=== PATIENT | male | born 1970 | race Caucasian/White ===

== ENCOUNTER 2016-10-27 09:47 | Inpatient (IN) | payer SELFPAY ==
[~2016-10-27] VITALS: Ht 160 cm; Wt 131.1 kg
[2016-10-27] MEDS ORDERED: IBUP100T54 PO (09:51)
[2016-10-27] MEDS ORDERED: NAPR220C15 PO (09:51)
[2016-10-27] MEDS ORDERED: ACET-2247 PO (09:51)
[2016-10-27] MEDS ORDERED: BARIUM SULFATE 0.1% SUSPENSION 450 ML BOTTLE PO ONE (10:15)
[2016-10-27] MEDS ORDERED: ONDANSETRON HCL 4 MG/2 ML VIAL IVP ONE (10:15)
[2016-10-27 10:17] LABS: BASOPHILS % (AUTO) 0.1 % (0.0-2.0); EOSINOPHILS % (AUTO) 0.6 % (1.0-6.0); HEMATOCRIT 42.4 % (41-53); LYMPHOCYTES % (AUTO) 11.8 % (22.0-44.0); MEAN CORPUSCULAR HEMOGLOBIN 26.3 pg (26.0-34.0); MEAN CORPUSCULAR VOLUME 80 fL (80-100); NEUTROPHILS % (AUTO) 81.5 % (40.0-70.0); PLATELET COUNT (AUTO) 585 K/uL (150-450); RED BLOOD CELL COUNT(AUTO) 5.32 MIL/uL (4.50-5.90); RED CELL DISTRIBUTION WIDTH 13.8 % (11.5-14.5); WHITE BLOOD COUNT (AUTO) 17.2 K/uL (4.5-11.0)
[2016-10-27 10:26] LABS: ANION GAP 8 mmol/L (8-16); CALCIUM, TOTAL 9.4 mg/dL (8.8-10.5); CARBON DIOXIDE 28 mmol/L (22-29); CHLORIDE 97 mmol/L (98-107); CREATININE 1.08 mg/dL (0.60-1.30); GLOMERULAR FILTR. RATE CALC > 60 mL/min (>60); POTASSIUM 4.3 mmol/L (3.5-5.1); SODIUM SERUM 133 mmol/L (136-145); UREA NITROGEN, BLOOD 12 mg/dL (7-18)
[2016-10-27 10:33] LABS: ALANINE AMINOTRANSFERASE 40 U/L (12-78); ALBUMIN 2.6 g/dL (3.4-5.0); ASPARTATE AMINOTRANSFERASE 29 U/L (15-37); BILIRUBIN,TOTAL 1.1 mg/dL (0.1-1.0); TOTAL PROTEIN, SERUM 8.9 g/dL (6.4-8.2)
[2016-10-27] MEDS ORDERED: SODIUM CHLORIDE 0.9% 100 ML ONE (11:43)
[2016-10-27] MEDS ORDERED: IOVERSOL 320 MG/ML 100 ML VIAL ONE (11:43)
[2016-10-27 11:50] LABS: APPEARANCE,URINE CLOUDY (CLEAR); GLUCOSE, URINE (UA) NEGATIVE (NEGATIVE); KETONES,URINE TRACE mg/dL (NEGATIVE); LEUKOCYTE ESTERASE ,URINE NEGATIVE (NEGATIVE); OCCULT BLOOD,URINE NEGATIVE (NEGATIVE); PH,URINE 5.5 (5.0-8.0); PROTEIN,URINE NEGATIVE (NEGATIVE)
[2016-10-27 12:05] LABS: RBC,URINE 0-2 /HPF (0-2); WBC,URINE None Seen /HPF (0-5)
[2016-10-27 12:06] LABS: SQUAMOUS EPITHELIAL CELL,UR Few /LPF (None Seen)
[2016-10-27] MEDS ORDERED: PIPERACILLIN/TAZO 3.375 GM/D5W 50 ML IV ONE (14:00)
[2016-10-27] MEDS ORDERED: MetroNIDAZOLE 750 MG/NACL 150 ML IV ONE (14:00)
[2016-10-27] MEDS ORDERED: ONDANSETRON HCL 4 MG/2 ML VIAL IVP PRN ×2 (14:45→20:45)
[2016-10-27] MEDS ORDERED: SODIUM CHLORIDE 0.9% 1,000 ML IV ONE (14:45)
[2016-10-27] MEDS ORDERED: MORPHINE SULFATE 4 MG/ML SYRINGE IVP PRN (14:45)
[2016-10-27 17:16] VITALS: BP 106/74
[2016-10-27 17:23] VITALS: BP 114/82
[2016-10-27 19:30] VITALS: BP 100/65
[2016-10-27] MEDS ORDERED: PIPERACILLIN/TAZO 3.375 GM/D5W 50 ML IV SCH (20:00)
[2016-10-27] MEDS ORDERED: BISACODYL 10 MG RECTAL RECTAL SUPPOSITORY PR PRN (20:45)
[2016-10-27] MEDS ORDERED: ACETAMINOPHEN 325 MG TABLET PO PRN (20:45)
[2016-10-27] MEDS ORDERED: ZOLPIDEM TARTRATE 5 MG TABLET PO PRN (20:45)
[2016-10-27] MEDS ORDERED: IPRATROPIUM BROMIDE 0.5 MG/2.5 ML NEB SOLUTION NEB PRN (20:45)
[2016-10-27] MEDS ORDERED: MORPHINE SULFATE 2 MG/ML SYRINGE IVP PRN (20:45)
[2016-10-27] MEDS ORDERED: ALBUTEROL SULFATE 2.5 MG/0.5 ML NEB SOLUTION NEB PRN (20:45)
[2016-10-27] MEDS ORDERED: MAGNESIUM HYDROXIDE SUSPENSION 30 ML UDCUP PO PRN (20:45)
[2016-10-27] MEDS ORDERED: HYDROCODONE/ACETAMINOPHEN 5-325 MG TABLET PO PRN (20:45)
[2016-10-27] MEDS: DOCUSATE SODIUM 100 MG CAPSULE PO SCH (21:33)
[2016-10-27] MEDS ORDERED: MetroNIDAZOLE 500 MG/NACL 100 ML IV SCH (22:00)
[2016-10-27] MEDS: PIPERACILLIN/TAZO 3.375 GM/D5W 50 ML IV SCH (22:26)
[2016-10-27] MEDS: MetroNIDAZOLE 500 MG/NACL 100 ML IV SCH (22:28)
[2016-10-27 23:12] VITALS: BP 98/71
[2016-10-28] MEDS: HEPARIN SODIUM,PORCINE 5,000 UNITS/ML VIAL SQ SCH ×3 (01:44→16:00)
[2016-10-28] MEDS: PIPERACILLIN/TAZO 3.375 GM/D5W 50 ML IV SCH ×4 (03:11→20:39)
[2016-10-28 04:00] VITALS: BP 96/68
[2016-10-28] MEDS ORDERED: SODIUM CHLORIDE 0.9% 1,000 ML IV ONE (05:11)
[2016-10-28 05:37] LABS: BASOPHILS % (AUTO) 0.4 % (0.0-2.0); EOSINOPHILS % (AUTO) 1.2 % (1.0-6.0); HEMATOCRIT 38.4 % (41-53); HEMOGLOBIN 12.5 g/dL (13.5-17.5); LYMPHOCYTES # (AUTO) 2.2 K/uL (1.0-4.8); LYMPHOCYTES % (AUTO) 13.6 % (22.0-44.0); MEAN CORPUSCULAR HEMOGLOBIN 26.1 pg (26.0-34.0); MEAN CORPUSCULAR HGB CONC 32.5 G/dL (31.0-37.0); MEAN CORPUSCULAR VOLUME 80 fL (80-100); MONOCYTES # (AUTO) 0.9 K/uL (0.1-1.0); MONOCYTES % (AUTO) 5.4 % (2.0-9.0); NEUTROPHILS # (AUTO) 12.7 K/uL (1.8-7.7); NEUTROPHILS % (AUTO) 79.4 % (40.0-70.0); PLATELET COUNT (AUTO) 526 K/uL (150-450); RED BLOOD CELL COUNT(AUTO) 4.77 MIL/uL (4.50-5.90); RED CELL DISTRIBUTION WIDTH 14.2 % (11.5-14.5)
[2016-10-28 05:51] LABS: INR 1.1 (0.9-1.1)
[2016-10-28 06:19] LABS: ALANINE AMINOTRANSFERASE 32 U/L (12-78); ALBUMIN 2.3 g/dL (3.4-5.0); ANION GAP 12 mmol/L (8-16); ASPARTATE AMINOTRANSFERASE 22 U/L (15-37); BILIRUBIN,TOTAL 0.9 mg/dL (0.1-1.0); CALCIUM, TOTAL 8.7 mg/dL (8.8-10.5); CARBON DIOXIDE 24 mmol/L (22-29); CHLORIDE 99 mmol/L (98-107); CREATININE 0.94 mg/dL (0.60-1.30); GLOMERULAR FILTR. RATE CALC > 60 mL/min (>60); POTASSIUM 3.8 mmol/L (3.5-5.1); SODIUM SERUM 135 mmol/L (136-145); TOTAL PROTEIN, SERUM 7.6 g/dL (6.4-8.2); UREA NITROGEN, BLOOD 12 mg/dL (7-18)
[2016-10-28] MEDS: MetroNIDAZOLE 500 MG/NACL 100 ML IV SCH ×3 (07:19→21:54)
[2016-10-28 07:33] VITALS: BP 107/71
[2016-10-28] MEDS: DOCUSATE SODIUM 100 MG CAPSULE PO SCH ×2 (09:00→20:39)
[2016-10-28] MEDS: PANTOPRAZOLE SODIUM 40 MG/VIAL IVP SCH (09:18)
[2016-10-28 11:21] VITALS: BP 98/65
[2016-10-28] MEDS ORDERED: MIDAZOLAM HCL 2 MG/2 ML VIAL ONE (13:58)
[2016-10-28] MEDS ORDERED: FentaNYL CITRATE-PF 100 MCG/2 ML VIAL ONE (13:59)
[2016-10-28] MEDS ORDERED: HEPARIN SODIUM 1000 UNITS/NS 500 ML ONE (14:48)
[2016-10-28] MEDS ORDERED: LIDOCAINE HCL/PF 1% 30 ML VIAL ONE (14:49)
[2016-10-28] MEDS ORDERED: MIDAZOLAM HCL 2 MG/2 ML VIAL IVP ONE (15:12)
[2016-10-28] MEDS ORDERED: FentaNYL CITRATE-PF 100 MCG/2 ML VIAL IVP ONE (15:13)
[2016-10-28 17:14] VITALS: BP 111/71
[2016-10-28 19:49] VITALS: BP 104/73
[2016-10-28 23:45] VITALS: BP 110/68
[2016-10-29] MEDS: PIPERACILLIN/TAZO 3.375 GM/D5W 50 ML IV SCH ×4 (04:10→20:43)
[2016-10-29 04:55] VITALS: BP 91/68
[2016-10-29] MEDS: MetroNIDAZOLE 500 MG/NACL 100 ML IV SCH ×3 (05:55→22:05)
[2016-10-29 06:08] LABS: BASOPHILS % (AUTO) 0.5 % (0.0-2.0); EOSINOPHILS % (AUTO) 1.6 % (1.0-6.0); HEMATOCRIT 37.6 % (41-53); HEMOGLOBIN 12.3 g/dL (13.5-17.5); LYMPHOCYTES # (AUTO) 1.9 K/uL (1.0-4.8); LYMPHOCYTES % (AUTO) 14.8 % (22.0-44.0); MEAN CORPUSCULAR HEMOGLOBIN 26.2 pg (26.0-34.0); MEAN CORPUSCULAR HGB CONC 32.6 G/dL (31.0-37.0); MEAN CORPUSCULAR VOLUME 80 fL (80-100); MONOCYTES # (AUTO) 0.9 K/uL (0.1-1.0); NEUTROPHILS # (AUTO) 9.7 K/uL (1.8-7.7); NEUTROPHILS % (AUTO) 76.1 % (40.0-70.0); PLATELET COUNT (AUTO) 587 K/uL (150-450); RED BLOOD CELL COUNT(AUTO) 4.68 MIL/uL (4.50-5.90); RED CELL DISTRIBUTION WIDTH 14.4 % (11.5-14.5); WHITE BLOOD COUNT (AUTO) 12.7 K/uL (4.5-11.0)
[2016-10-29 06:43] LABS: ANION GAP 10 mmol/L (8-16); CALCIUM, TOTAL 8.7 mg/dL (8.8-10.5); CARBON DIOXIDE 27 mmol/L (22-29); CHLORIDE 101 mmol/L (98-107); CREATININE 0.94 mg/dL (0.60-1.30); GLOMERULAR FILTR. RATE CALC > 60 mL/min (>60); POTASSIUM 3.9 mmol/L (3.5-5.1); SODIUM SERUM 138 mmol/L (136-145); UREA NITROGEN, BLOOD 7 mg/dL (7-18)
[2016-10-29 07:35] VITALS: BP 102/68
[2016-10-29] MEDS: PANTOPRAZOLE SODIUM 40 MG/VIAL IVP SCH (08:44)
[2016-10-29] MEDS: DOCUSATE SODIUM 100 MG CAPSULE PO SCH ×2 (08:44→20:43)
[2016-10-29] MEDS: HEPARIN SODIUM,PORCINE 5,000 UNITS/ML VIAL SQ SCH ×4 (08:44→23:21)
[2016-10-29 15:45] VITALS: BP 99/46
[2016-10-29 19:30] VITALS: BP 105/67
[2016-10-29 23:23] VITALS: BP 105/72
[2016-10-30] MEDS: PIPERACILLIN/TAZO 3.375 GM/D5W 50 ML IV SCH ×4 (04:17→20:55)
[2016-10-30 05:27] VITALS: BP 98/72
[2016-10-30] MEDS: MetroNIDAZOLE 500 MG/NACL 100 ML IV SCH ×3 (05:43→22:03)
[2016-10-30 06:53] LABS: BASOPHILS % (AUTO) 0.7 % (0.0-2.0); EOSINOPHILS % (AUTO) 1.8 % (1.0-6.0); HEMOGLOBIN 12.6 g/dL (13.5-17.5); LYMPHOCYTES # (AUTO) 2.8 K/uL (1.0-4.8); LYMPHOCYTES % (AUTO) 21.4 % (22.0-44.0); MEAN CORPUSCULAR HEMOGLOBIN 26.8 pg (26.0-34.0); MEAN CORPUSCULAR VOLUME 81 fL (80-100); MONOCYTES # (AUTO) 0.9 K/uL (0.1-1.0); MONOCYTES % (AUTO) 6.7 % (2.0-9.0); NEUTROPHILS % (AUTO) 69.4 % (40.0-70.0); PLATELET COUNT (AUTO) 651 K/uL (150-450); RED CELL DISTRIBUTION WIDTH 14.1 % (11.5-14.5); WHITE BLOOD COUNT (AUTO) 12.9 K/uL (4.5-11.0)
[2016-10-30 07:14] LABS: ANION GAP 9 mmol/L (8-16); CALCIUM, TOTAL 8.7 mg/dL (8.8-10.5); CARBON DIOXIDE 26 mmol/L (22-29); CHLORIDE 103 mmol/L (98-107); CREATININE 0.89 mg/dL (0.60-1.30); GLOMERULAR FILTR. RATE CALC > 60 mL/min (>60); POTASSIUM 3.9 mmol/L (3.5-5.1); SODIUM SERUM 138 mmol/L (136-145); UREA NITROGEN, BLOOD 5 mg/dL (7-18)
[2016-10-30] MEDS: DOCUSATE SODIUM 100 MG CAPSULE PO SCH ×2 (07:40→21:00)
[2016-10-30] MEDS: HEPARIN SODIUM,PORCINE 5,000 UNITS/ML VIAL SQ SCH ×3 (07:42→23:27)
[2016-10-30 08:00] VITALS: BP 98/52
[2016-10-30] MEDS: PANTOPRAZOLE SODIUM 40 MG/VIAL IVP SCH (11:11)
[2016-10-30 15:22] VITALS: BP 116/74
[2016-10-30 19:41] VITALS: BP 121/71
[2016-10-30 23:24] VITALS: BP 106/61
[2016-10-31] MEDS: PIPERACILLIN/TAZO 3.375 GM/D5W 50 ML IV SCH ×2 (05:04→08:39)
[2016-10-31 05:07] VITALS: BP 99/64
[2016-10-31] MEDS: MetroNIDAZOLE 500 MG/NACL 100 ML IV SCH (06:12)
[2016-10-31 06:32] LABS: BASOPHILS % (AUTO) 0.9 % (0.0-2.0); EOSINOPHILS % (AUTO) 1.8 % (1.0-6.0); HEMATOCRIT 40.5 % (41-53); HEMOGLOBIN 13.3 g/dL (13.5-17.5); LYMPHOCYTES % (AUTO) 23.8 % (22.0-44.0); MEAN CORPUSCULAR HEMOGLOBIN 26.6 pg (26.0-34.0); MEAN CORPUSCULAR HGB CONC 32.9 G/dL (31.0-37.0); MEAN CORPUSCULAR VOLUME 81 fL (80-100); MONOCYTES # (AUTO) 0.7 K/uL (0.1-1.0); MONOCYTES % (AUTO) 5.5 % (2.0-9.0); NEUTROPHILS # (AUTO) 8.5 K/uL (1.8-7.7); PLATELET COUNT (AUTO) 686 K/uL (150-450); RED BLOOD CELL COUNT(AUTO) 5.01 MIL/uL (4.50-5.90); RED CELL DISTRIBUTION WIDTH 14.2 % (11.5-14.5); WHITE BLOOD COUNT (AUTO) 12.5 K/uL (4.5-11.0)
[2016-10-31 07:39] VITALS: BP 102/70
[2016-10-31] MEDS: HEPARIN SODIUM,PORCINE 5,000 UNITS/ML VIAL SQ SCH (08:00)
[2016-10-31] MEDS: PANTOPRAZOLE SODIUM 40 MG/VIAL IVP SCH (08:39)
[2016-10-31] MEDS: DOCUSATE SODIUM 100 MG CAPSULE PO SCH (08:40)
[2016-10-31] MEDS ORDERED: DSS100 PO (09:28)
[2016-10-31] MEDS ORDERED: METR500 PO (09:29)
[2016-10-31] MEDS ORDERED: CIPR-278 PO (09:31)
== END 2016-10-31 10:47 | disposition home or self-care (01) | DRG 391 ==
LOC: EMS 09:49 → 6N 16:13
PROVIDERS: ADMIT Hospitalist; ATTEND Hospitalist
PROC: 0W9F3ZZ Drainage of Abdominal Wall, Percutaneous Approach (ICD-10-PCS; principal; 2016-10-28)
DX: K57.20 Diverticulitis of large intestine with perforation and abscess without bleeding (principal); E43 Unspecified severe protein-calorie malnutrition; R65.10 Systemic inflammatory response syndrome (SIRS) of non-infectious origin without acute organ dysfunction; E87.1 Hypo-osmolality and hyponatremia; Z68.43 Body mass index [BMI] 50.0-59.9, adult; K76.0 Fatty (change of) liver, not elsewhere classified; F17.210 Nicotine dependence, cigarettes, uncomplicated; Z98.1 Arthrodesis status; Z83.3 Family history of diabetes mellitus; Z71.6 Tobacco abuse counseling
CPT/HCPCS: 49021; 74177; 87070; 87205; 96365; 96366; 96367; 96375; 99285; C9113; J1644; J2250; J2405; J2543; J3010; J3490; J7030; J7050

== ENCOUNTER 2020-07-04 00:43 | Emergency (ER) | payer MEDICAID ==
[~2020-07-04] VITALS: Ht 149.9 cm; Wt 54.5 kg
[~2020-07-04 00:43] MED LIST: ACET-2247 PO; CIPR-278 PO; DSS100 PO; METR500 PO
[2020-07-04 01:45] LABS: BASOPHILS % (AUTO) 1.2 % (0.0-2.0); EOSINOPHILS % (AUTO) 4.1 % (1.0-6.0); HEMATOCRIT 44.8 % (41-53); HEMOGLOBIN 14.4 g/dL (13.5-17.5); LYMPHOCYTES # (AUTO) 2.3 K/uL (1.0-4.8); LYMPHOCYTES % (AUTO) 28.9 % (22.0-44.0); MEAN CORPUSCULAR HEMOGLOBIN 25.6 pg (26.0-34.0); MEAN CORPUSCULAR HGB CONC 32.2 G/dL (31.0-37.0); MEAN CORPUSCULAR VOLUME 80 fL (80-100); MONOCYTES # (AUTO) 0.9 K/uL (0.1-1.0); MONOCYTES % (AUTO) 11.6 % (2.0-9.0); NEUTROPHILS # (AUTO) 4.3 K/uL (1.8-7.7); NEUTROPHILS % (AUTO) 54.2 % (40.0-70.0); PLATELET COUNT (AUTO) 332 K/uL (150-450); RED BLOOD CELL COUNT(AUTO) 5.64 MIL/uL (4.50-5.90); RED CELL DISTRIBUTION WIDTH 14.7 % (11.5-14.5)
[2020-07-04 01:47] LABS: ANION GAP 11 mmol/L (8-16); CALCIUM, TOTAL 9.4 mg/dL (8.8-10.5); CARBON DIOXIDE 26 mmol/L (22-29); CHLORIDE 100 mmol/L (98-107); GLOMERULAR FILTR. RATE CALC > 60 mL/min (>60); GLUCOSE,RANDOM 98 mg/dL (70-110); POTASSIUM 4.2 mmol/L (3.5-5.1); SODIUM SERUM 137 mmol/L (136-145); UREA NITROGEN, BLOOD 11 mg/dL (7-18)
[2020-07-04 02:03] LABS: PROTHROMBIN TIME 10.3 SEC (9.4-11.6)
[2020-07-04 02:12] LABS: ALANINE AMINOTRANSFERASE 34 U/L (12-78); ALBUMIN 3.6 g/dL (3.4-5.0); ALKALINE PHOSPHATASE 150 U/L (46-116); ASPARTATE AMINOTRANSFERASE 29 U/L (15-37); BILIRUBIN,TOTAL 0.2 mg/dL (0.1-1.0); CREATINE KINASE, TOTAL ONLY 132 U/L (39-308); TOTAL PROTEIN, SERUM 8.3 g/dL (6.4-8.2)
[2020-07-04 02:14] LABS: B-TYPE NATRIURETIC PEPTIDE 90 pg/mL (0-100)
[2020-07-04] MEDS ORDERED: ASPIRIN 325 MG TABLET PO ONE (02:15)
[2020-07-04 02:19] LABS: APPEARANCE,URINE CLEAR (CLEAR); BILIRUBIN,URINE NEGATIVE (NEGATIVE); GLUCOSE, URINE (UA) NEGATIVE (NEGATIVE); KETONES,URINE NEGATIVE (NEGATIVE); LEUKOCYTE ESTERASE ,URINE NEGATIVE (NEGATIVE); NITRATE,URINE NEGATIVE (NEGATIVE); OCCULT BLOOD,URINE NEGATIVE (NEGATIVE); PH,URINE 6.5 (5.0-8.0); PROTEIN,URINE NEGATIVE (NEGATIVE); UROBILINOGEN,URINE 0.2 mg/dL (<=1.0)
[2020-07-04 02:37] LABS: COVID AG,FIA SOURCE NASOPHARYNGEAL
[2020-07-04] MEDS ORDERED: ACETAMINOPHEN 325 MG TABLET PO PRN ×2 (02:45→03:30)
[2020-07-04] MEDS ORDERED: ONDANSETRON HCL 4 MG/2 ML VIAL IVP PRN ×2 (02:45→03:30)
[2020-07-04] MEDS ORDERED: 0.9% SODIUM CHLORIDE 10 ML SYRINGE IVP PRN (02:45)
[2020-07-04 03:01] LABS: AMPHET/METH SCREEN,URINE NEGATIVE (NEGATIVE); BARBITURATE SCREEN, URINE NEGATIVE (NEGATIVE); BENZODIAZEPINES SCREEN,URINE NEGATIVE (NEGATIVE); CANNABINOID SCREEN,URINE NEGATIVE (NEGATIVE); COCAINE SCREEN,URINE NEGATIVE (NEGATIVE); METHADONE SCREEN, URINE NEGATIVE (NEGATIVE); OPIATE SCREEN,URINE NEGATIVE (NEGATIVE)
[2020-07-04 03:03] LABS: PHENCYCLIDINE SCREEN,URINE NEGATIVE (NEGATIVE)
[2020-07-04] MEDS ORDERED: ATORVASTATIN CALCIUM 40 MG TABLET PO ONE (03:30)
[2020-07-04] MEDS ORDERED: MORPHINE SULFATE 2 MG/ML SYRINGE IVP PRN (03:30)
[2020-07-04] MEDS ORDERED: CARVEDILOL 3.125 MG TABLET PO SCH (03:30)
[2020-07-04] MEDS ORDERED: ENOXAPARIN SODIUM 60 MG/0.6 ML PF SYRINGE SQ ONE (03:45)
[2020-07-04] MEDS ORDERED: NITROGLYCERIN 2% (1 GM=INCH) PACKET TP ONE (03:45)
[2020-07-04 03:54] VITALS: BP 181/101
[2020-07-04] MEDS ORDERED: NITROGLYCERIN 2% (1 GM=INCH) PACKET TP SCH (11:00)
[2020-07-04] MEDS ORDERED: ENOXAPARIN SODIUM 60 MG/0.6 ML PF SYRINGE SQ SCH (21:00)
== END 2020-07-04 04:06 | disposition left against medical advice (07) ==
LOC: EMS 00:47
DX: R07.9 Chest pain, unspecified (principal); F17.210 Nicotine dependence, cigarettes, uncomplicated; F12.90 Cannabis use, unspecified, uncomplicated; Z20.822 Contact with and (suspected) exposure to COVID-19
CPT/HCPCS: 36415; 71045; 80053; 80307; 81003; 82550; 83880; 84484; 85025; 85610; 85730; 87426; 93005; 99285; J1650

== ENCOUNTER 2020-09-04 08:00 | Emergency (ER) | payer MEDICAID ==
[~2020-09-04] VITALS: Ht 160 cm; Wt 65.9 kg
[2020-09-04 09:26] LABS: EOSINOPHILS % (AUTO) 3.7 % (1.0-6.0); HEMATOCRIT 40.9 % (41-53); HEMOGLOBIN 13.1 g/dL (13.5-17.5); LYMPHOCYTES # (AUTO) 1.7 K/uL (1.0-4.8); LYMPHOCYTES % (AUTO) 19.2 % (22.0-44.0); MEAN CORPUSCULAR HEMOGLOBIN 25.5 pg (26.0-34.0); MEAN CORPUSCULAR HGB CONC 32.1 G/dL (31.0-37.0); MEAN CORPUSCULAR VOLUME 79 fL (80-100); MONOCYTES # (AUTO) 0.5 K/uL (0.1-1.0); MONOCYTES % (AUTO) 6.1 % (2.0-9.0); NEUTROPHILS # (AUTO) 6.3 K/uL (1.8-7.7); PLATELET COUNT (AUTO) 442 K/uL (150-450); RED BLOOD CELL COUNT(AUTO) 5.15 MIL/uL (4.50-5.90); RED CELL DISTRIBUTION WIDTH 14.6 % (11.5-14.5)
[2020-09-04 09:37] LABS: ANION GAP 8 mmol/L (8-16); CARBON DIOXIDE 27 mmol/L (22-29); CHLORIDE 101 mmol/L (98-107); CREATININE 0.97 mg/dL (0.60-1.30); GLOMERULAR FILTR. RATE CALC > 60 mL/min (>60); GLUCOSE,RANDOM 106 mg/dL (70-110); POTASSIUM 3.6 mmol/L (3.5-5.1); SODIUM SERUM 136 mmol/L (136-145); UREA NITROGEN, BLOOD 15 mg/dL (7-18)
[2020-09-04 09:44] LABS: ALANINE AMINOTRANSFERASE 36 U/L (12-78); ALBUMIN 4.4 g/dL (3.4-5.0); ALKALINE PHOSPHATASE 175 U/L (46-116); ASPARTATE AMINOTRANSFERASE 30 U/L (15-37); BILIRUBIN,TOTAL 0.5 mg/dL (0.1-1.0); LIPASE 108 U/L (73-393); TOTAL PROTEIN, SERUM 8.8 g/dL (6.4-8.2)
[2020-09-04 09:51] LABS: B-TYPE NATRIURETIC PEPTIDE 7 pg/mL (0-100)
[2020-09-04 10:29] LABS: COVID AG,FIA SOURCE NASOPHARYNGEAL
[2020-09-04 10:44] LABS: AMPHET/METH SCREEN,URINE NEGATIVE (NEGATIVE); BARBITURATE SCREEN, URINE NEGATIVE (NEGATIVE); BENZODIAZEPINES SCREEN,URINE NEGATIVE (NEGATIVE); CANNABINOID SCREEN,URINE NEGATIVE (NEGATIVE); COCAINE SCREEN,URINE NEGATIVE (NEGATIVE); METHADONE SCREEN, URINE NEGATIVE (NEGATIVE); OPIATE SCREEN,URINE NEGATIVE (NEGATIVE)
[2020-09-04 10:45] LABS: PHENCYCLIDINE SCREEN,URINE NEGATIVE (NEGATIVE)
[2020-09-04 11:10] VITALS: BP 144/75
== END 2020-09-04 11:17 | disposition left against medical advice (07) ==
LOC: EMS 08:02
DX: R07.89 Other chest pain (principal); F17.210 Nicotine dependence, cigarettes, uncomplicated; F15.90 Other stimulant use, unspecified, uncomplicated; Z20.822 Contact with and (suspected) exposure to COVID-19
CPT/HCPCS: 36415; 71045; 80053; 80307; 83690; 83880; 84484; 85025; 87426; 93005; 99285; 99406; C9803; G0480

== ENCOUNTER 2020-09-07 08:25 | Emergency (ER) | payer MEDICAID ==
[~2020-09-07] VITALS: Ht 165.1 cm; Wt 70.0 kg
[2020-09-07 09:43] LABS: APPEARANCE,URINE CLEAR (CLEAR); BILIRUBIN,URINE NEGATIVE (NEGATIVE); GLUCOSE, URINE (UA) NEGATIVE (NEGATIVE); KETONES,URINE NEGATIVE (NEGATIVE); LEUKOCYTE ESTERASE ,URINE NEGATIVE (NEGATIVE); NITRATE,URINE NEGATIVE (NEGATIVE); OCCULT BLOOD,URINE TRACE (NEGATIVE); PROTEIN,URINE NEGATIVE (NEGATIVE); UROBILINOGEN,URINE 0.2 mg/dL (<=1.0)
[2020-09-07 09:57] LABS: BACTERIA,URINE None Seen /HPF (None Seen); RBC,URINE 0-2 /HPF (0-2); WBC,URINE None Seen /HPF (0-5)
[2020-09-07 10:00] VITALS: BP 127/66
== END 2020-09-07 11:01 | disposition left against medical advice (07) ==
LOC: EMS 11:01
DX: F41.9 Anxiety disorder, unspecified (principal); R42 Dizziness and giddiness; R07.89 Other chest pain; F17.210 Nicotine dependence, cigarettes, uncomplicated; F15.90 Other stimulant use, unspecified, uncomplicated; Z86.73 Personal history of transient ischemic attack (TIA), and cerebral infarction without residual deficits; Z79.899 Other long term (current) drug therapy
CPT/HCPCS: 71045; 81001; 93005; 99284